=== PATIENT | female | born 1975 | race Caucasian/White ===

== ENCOUNTER 2020-01-17 11:41 | Emergency (ER) | payer OTHER | END 2020-01-17 12:07 | disposition home or self-care (01) | LOC: JVIRT 11:41 | DX: Z03.818 Encounter for observation for suspected exposure to other biological agents ruled out (principal) | CPT/HCPCS: C9803; G2012-GT; U0003 ==

== ENCOUNTER 2020-02-27 14:17 | Emergency (ER) | payer OTHER | END 2020-02-27 15:22 | disposition home or self-care (01) | LOC: JVIRT 14:17 | DX: Z11.52 Encounter for screening for COVID-19 (principal) | CPT/HCPCS: C9803; G2012-GT; U0003 ==

== ENCOUNTER 2020-03-08 11:49 | Emergency (ER) | payer OTHER | END 2020-03-08 12:57 | disposition home or self-care (01) | LOC: JVIRT 11:49 | DX: U07.1 COVID-19 (principal) | CPT/HCPCS: C9803; G2012-GT; U0003 ==

== ENCOUNTER 2020-09-02 18:24 | Emergency (ER) | payer OTHER ==
[2020-09-03 20:08] LABS: SARS-CoV-2 NAA Not Detected (Not Detected)
== END 2020-09-02 18:49 | disposition home or self-care (01) ==
LOC: JVIRT 18:24
DX: Z11.52 Encounter for screening for COVID-19 (principal)
CPT/HCPCS: C9803; Q3014-GT; U0003; U0005

== ENCOUNTER 2022-02-15 16:56 | Day surgery (SDC) | payer OTHER ==
[2022-02-15] MEDS ORDERED: IRON SUCROSE INJECTION 200 MG in SODIUM CHLORIDE 100 ML IVPB ONE (17:30)
[2022-02-15 18:51] VITALS: BP 102/55; PULSE 66; RESP 18; TEMP 98
== END 2022-02-15 19:05 | disposition home or self-care (01) ==
LOC: FINFUSION 16:56 → FM/S 16:57 → FINFUSION 19:05
PROVIDERS: ATTEND Family Medicine
PROC: 3E033GC Introduction of Other Therapeutic Substance into Peripheral Vein, Percutaneous Approach (ICD-10-PCS; principal; 2022-02-15)
DX: D50.9 Iron deficiency anemia, unspecified (principal)
CPT/HCPCS: 96365; J1756

== ENCOUNTER 2022-02-22 12:16 | Day surgery (SDC) | payer OTHER ==
[2022-02-22] MEDS ORDERED: IRON SUCROSE INJECTION 200 MG in SODIUM CHLORIDE 100 ML IVPB ONE (13:00)
[2022-02-22 13:33] VITALS: BP 123/52; PULSE 60; RESP 18; TEMP 98.5
== END 2022-02-22 16:57 | disposition home or self-care (01) ==
LOC: FINFUSION 12:16 → FM/S 12:18 → FINFUSION 16:57
PROVIDERS: ATTEND Family Medicine
PROC: 3E033GC Introduction of Other Therapeutic Substance into Peripheral Vein, Percutaneous Approach (ICD-10-PCS; principal; 2022-02-22)
DX: D50.9 Iron deficiency anemia, unspecified (principal)
CPT/HCPCS: 96365; J1756

== ENCOUNTER 2022-03-01 16:41 | Day surgery (SDC) | payer OTHER ==
[2022-03-01] MEDS ORDERED: IRON SUCROSE INJECTION 200 MG in SODIUM CHLORIDE 100 ML IVPB ONE (17:00)
[2022-03-01 17:24] VITALS: RESP 18; TEMP 98.6
[2022-03-01 18:47] VITALS: BP 105/60; PULSE 60
== END 2022-03-01 19:01 | disposition home or self-care (01) ==
LOC: FINFUSION 16:41 → FM/S 16:42 → FINFUSION 19:01
PROVIDERS: ATTEND Family Medicine
PROC: 3E033GC Introduction of Other Therapeutic Substance into Peripheral Vein, Percutaneous Approach (ICD-10-PCS; principal; 2022-03-01)
DX: D50.9 Iron deficiency anemia, unspecified (principal)
CPT/HCPCS: 96365; J1756

== ENCOUNTER 2022-03-08 12:26 | Day surgery (SDC) | payer OTHER ==
[2022-03-08] MEDS ORDERED: IRON SUCROSE INJECTION 200 MG in SODIUM CHLORIDE 100 ML IVPB ONE (13:00)
[2022-03-08 14:05] VITALS: BP 108/56; PULSE 55; RESP 17; TEMP 98
== END 2022-03-08 14:15 | disposition home or self-care (01) ==
LOC: FINFUSION 12:26 → FM/S 12:27 → FINFUSION 14:15
PROVIDERS: ATTEND Family Medicine
PROC: 3E033GC Introduction of Other Therapeutic Substance into Peripheral Vein, Percutaneous Approach (ICD-10-PCS; principal; 2022-03-08)
DX: D50.9 Iron deficiency anemia, unspecified (principal)
CPT/HCPCS: 96365; J1756

== ENCOUNTER 2022-03-15 16:36 | Day surgery (SDC) | payer OTHER ==
[2022-03-15] MEDS ORDERED: IRON SUCROSE INJECTION 200 MG in SODIUM CHLORIDE 100 ML IVPB ONE (17:00)
[2022-03-15] MEDS ORDERED: IRON SUCROSE INJECTION 200 MG/100 ML BAG IVPB ONE (17:00)
[2022-03-15 18:05] VITALS: BP 106/59; PULSE 58; RESP 17; TEMP 97.8
== END 2022-03-15 18:05 | disposition home or self-care (01) ==
LOC: FINFUSION 16:36 → FM/S 16:38 → FINFUSION 18:05
PROVIDERS: ATTEND Family Medicine
DX: D50.9 Iron deficiency anemia, unspecified (principal)
CPT/HCPCS: 96365; J1756

== ENCOUNTER 2024-03-30 14:33 | Emergency (ER) | payer OTHER ==
[2024-03-30 14:45] VITALS: BP 136/76; PULSE 75; RESP 18; TEMP 98.4; BMI 25.7
[2024-03-30] MEDS ORDERED: ACETAMINOPHEN 500 MG TABLET (FP) ONE (14:51)
[2024-03-30] MEDS: ACETAMINOPHEN 500 MG TABLET (FP) PO ONE (14:53)
== END 2024-03-30 15:59 | disposition home or self-care (01) ==
LOC: FER 14:33
DX: S99.911A Unspecified injury of right ankle, initial encounter (principal); W26.8XXA Contact with other sharp object(s), not elsewhere classified, initial encounter
CPT/HCPCS: 73610-TC-RT-FY; 99283-25